=== PATIENT | female | born 1935 | race Caucasian/White ===

== ENCOUNTER 2019-07-11 06:22 | Inpatient (IN) | payer MEDICARE, OTHER ==
[~2019-07-11] VITALS: Ht 147.3 cm; Wt 52.9 kg
[2019-07-11] VITALS (8 sets, daily range): BP systolic 107–195; BP diastolic 69–129
--- NOTE | 2019-07-11 06:25 | NUR ---
UNABLE TO OBTAIN SPO2, PT'S HANDS EXTREMELY COLD, BILINGUAL HR GENERALIST UPDATED AND PT TAKEN BACK TO ROOM
[2019-07-11] MEDS ORDERED: SODIUM CHLORIDE FLUSH 10ML SYR IVF ONE (07:00)
[2019-07-11] MEDS ORDERED: ALBUTEROL/IPRATROPIUM 2.5MG/0.5MG, 3 ML NEB ONE (07:00)
[2019-07-11] MEDS ORDERED: ALBUTEROL SULFATE 2.5 MG/3 ML NPPB ONE (07:00)
[2019-07-11] MEDS ORDERED: methylPREDNISolone SOD SUCC 125 MG/2 ML IV ONE (07:00)
--- NOTE | 2019-07-11 07:02 | NUR ---
PT WHEELED FROM TRIAGE TO ROOM AT THIS TIME. PT OXYGEN 56 ON RA. PT REPORTS HISTORY OF COPD AND CHF, AND PT PLACED ON 15L NON REBREATHER AT THIS TIME. PT 02 IMPROVED TO 100 % ON NON REBREATHER SO PT PLACED ON 3 L OXYMASK TO MAINTAIN OXYGEN SATURATION AT 94%. EKG DONE AT BS. PT ATTACHED TO FIRE ALARM OPERATOR AND VS MACHINES. DR FARRELL AT BS. IV ACCESS ESTABLISHED. AWAITING NEW ORDERS AT THIS TIME.
--- NOTE | 2019-07-11 07:13 | NUR ---
REPORT OF PT TO CROW NELSON. ALL QUESTIONS ANSWERED.
[2019-07-11] MEDS ORDERED: ALBUTEROL/IPRATROPIUM 2.5MG/0.5MG, 3 ML ONE (07:14)
[2019-07-11] MEDS ORDERED: ALBUTEROL SULFATE 2.5MG/0.5ML ONE (07:14)
[2019-07-11 07:16] LABS: BASOPHILS # (AUTO) 0.01 x10^3/uL (0-0.1); BASOPHILS % (AUTO) 0 % (0-1); EOSINOPHILS # (AUTO) 0.01 x10^3/uL (0-0.4); EOSINOPHILS % (AUTO) 0 % (1-7); LYMPHOCYTES # (AUTO) 0.97 x10^3/uL (1-3.4); LYMPHOCYTES % (AUTO) 14 % (22-44); MD NO; MEAN CORPUSCULAR HEMOGLOBIN 27.6 pg (27.0-34.8); MEAN CORPUSCULAR HGB CONC 31.4 g/dL (32.4-35.8); MEAN CORPUSCULAR VOLUME 87.8 fL (80-100); MEAN PLATELET VOLUME 8.1 fL (7.4-10.4); MONOCYTES # (AUTO) 0.62 x10^3/uL (0.2-0.8); MONOCYTES % (AUTO) 9 % (2-9); NEUTROPHILS # (AUTO) 5.31 x10^3/uL (1.8-6.8); NEUTROPHILS % (AUTO) 77 % (42-75); PLATELET COUNT 266 x10^3/uL (130-400); RED BLOOD COUNT 5.66 x10^6/uL (3.82-5.3); RED CELL DISTRIBUTION WIDTH 18.5 % (9.6-15.2)
[2019-07-11] MEDS ORDERED: FURO40TA6 PO (07:16)
[2019-07-11] MEDS ORDERED: LOSA25TA25 PO (07:17)
[2019-07-11] MEDS ORDERED: LEFL20TA16 PO (07:18)
[2019-07-11] MEDS ORDERED: POTA20PA25 PO (07:19)
[2019-07-11] MEDS ORDERED: INHALER (07:19)
[2019-07-11] MEDS ORDERED: LEVA15HF4 INH (07:20)
--- NOTE | 2019-07-11 07:22 | NUR ---
REPORT FROM CROW AVENDANO. ASSUMED CARE OF PATIENT, RT AT BEDSIDE, FAMILY AT BEDSIDE. PATIENT SITTING IN [place], A+OX4, NADN, SKIN WARM, PINK, DRY. XRAY COMPLETED, BREATHING TREATMENT BEING ADMINISTERED AT THIS TIME. CALL LIGHT WITHIN REACH.
[2019-07-11] MEDS ORDERED: methylPREDNISolone SOD SUCC 125 MG/2 ML ONE (07:27)
[2019-07-11 07:29] LABS: ALANINE AMINOTRANSFERASE 64 U/L (12-78); ALBUMIN 3.7 g/dL (3.4-5.0); ANION GAP 10 mmol/L (5-15); CHLORIDE 100 mmol/L (98-107); CREATININE 0.85 mg/dL (0.55-1.02)
[2019-07-11 07:33] LABS: ALKALINE PHOSPHATASE 105 U/L (45-117); BILIRUBIN,TOTAL 0.7 mg/dL (0.2-1.0); TOTAL PROTEIN 7.9 g/dL (6.4-8.2)
[2019-07-11 07:46] LABS: TROPONIN I 0.215 ng/mL (0.000-0.045)
[2019-07-11] MEDS ORDERED: ASPIRIN 81 MG TABLET CHEW PO ONE (08:00)
[2019-07-11] MEDS ORDERED: ASPIRIN 81 MG TABLET CHEW ONE (08:23)
--- NOTE | 2019-07-11 08:29 | NUR ---
PATIENT AMBULATED TO BATHROOM WITH SLOW STEADY GAIT, STAND-BY ASSIST WITH SISTER, PATIENT BACK TO BED, 49% RA, PATIENT NOW 94% 3L OXYMASK, PATIENT SITTING UPRIGHT IN GURNEY, SKIN WARM, PINK DRY, NADN.A+OX4. EKG AT BEDSIDE FOR REPEAT EKG, VS UPDATED IN CHART. BLOOD CULTURES X 2 DRAWN PRIOR TO ABX, ABX ADMINISTERED AT THIS TIME. AQUATIC INSTRUCTOR/SPO2 ON PATIENT. ADMIT ORDER IN, AWAITING BED ASSIGNMENT. PATIENT/FAMILY UPDATED ON POC.
[2019-07-11] MEDS ORDERED: AZITHROMYCIN 500 MG in SODIUM CHLORIDE 0.9% 250 ML IV ONE (08:30)
--- NOTE | 2019-07-11 08:47 | NUR ---
MEDICATION REQUEST SENT TO PHARMACY.
[2019-07-11] MEDS ORDERED: FAMOTIDINE 20 MG TABLET PO SCH (09:00)
[2019-07-11] MEDS ORDERED: DOCUSATE 100 MG CAPSULE PO PRN (09:00)
[2019-07-11] MEDS ORDERED: ACETAMINOPHEN 325 MG TABLET PO PRN (09:00)
[2019-07-11] MEDS ORDERED: LOSARTAN 25MG TABLET PO SCH (09:00)
[2019-07-11] MEDS ORDERED: LABETALOL 5MG/ML, 20ML IVPush PRN (09:00)
[2019-07-11] MEDS ORDERED: GUAIFENESIN/COD200MG-20MG/10ML LIQUID PO PRN (09:00)
--- NOTE | 2019-07-11 09:10 | NUR ---
VS UPDATED IN CHART, PATIENT SITTING IN [facility] SPEAKING WITH [facility] AT BEDSIDE, AWAITING BED ASSIGNMENT. JOVANY.
--- NOTE | 2019-07-11 09:21 | NUR ---
PATIENT TO CT VIA JOVANY POPE.
--- NOTE | 2019-07-11 10:01 | NUR ---
REPORT TO CROW COWART.
[2019-07-11] MEDS: hydrALAzine 20 MG/ML, 1ML IVPush PRN ×2 (10:48→20:18)
[2019-07-11] MEDS: HEPARIN 5,000 UNITS/ML, 1ML SQ SCH ×2 (10:48→18:44)
[2019-07-11] MEDS ORDERED: OMNIPAQUE 350 MG/ML, 100ML BOTTLE ONE (10:53)
[2019-07-11] MEDS: ALBUTEROL/IPRATROPIUM 2.5MG/0.5MG, 3 ML NPPB SCH ×3 (10:58→19:16)
[2019-07-11 11:58] LABS: TROPONIN I 0.319 ng/mL (0.000-0.045)
[2019-07-11] MEDS ORDERED: FUROSEMIDE 20 MG/2 ML IV SCH ×2 (12:00→21:00)
[2019-07-11] MEDS: CEFTRIAXONE PMX 1GM/50ML 50 ML IV SCH (12:18)
[2019-07-11 13:26] LABS: HEMOGLOBIN A1C 6.5 % (4.2-6.3)
[2019-07-11] MEDS: methylPREDNISolone SOD SUCC 40 MG/ML IVPush SCH ×2 (16:23→23:39)
[2019-07-11] MEDS ORDERED: LOSARTAN 25MG TABLET PO STA (17:19)
[2019-07-11 18:36] LABS: TROPONIN I 0.387 ng/mL (0.000-0.045)
[2019-07-11] MEDS ORDERED: DEXTROSE 4 GM TAB.CHEW PO PRN (20:00)
[2019-07-11] MEDS ORDERED: DEXTROSE 50%, 50ML SYRINGE IVPush PRN (20:00)
[2019-07-11] MEDS ORDERED: GLUCAGON 1 MG IM PRN (20:00)
[2019-07-11] MEDS: SODIUM CHLORIDE FLUSH 10ML SYR IVF SCH (21:25)
[2019-07-11] MEDS: INSULIN LISPRO 100 UNITS/ML, PEN SQ-INSULIN SCH (21:25)
[2019-07-12 01:06] VITALS: BP 101/58
[2019-07-12 05:21] LABS: MEAN CORPUSCULAR HEMOGLOBIN 27.5 pg (27.0-34.8); MEAN CORPUSCULAR HGB CONC 31.6 g/dL (32.4-35.8); MEAN CORPUSCULAR VOLUME 86.9 fL (80-100); MEAN PLATELET VOLUME 8.4 fL (7.4-10.4); PLATELET COUNT 199 x10^3/uL (130-400); RED BLOOD COUNT 5.19 x10^6/uL (3.82-5.3); RED CELL DISTRIBUTION WIDTH 18.4 % (9.6-15.2)
[2019-07-12 05:30] LABS: CHLORIDE 104 mmol/L (98-107)
[2019-07-12 05:40] LABS: ANION GAP 6 mmol/L (5-15); CALCIUM 8.5 mg/dL (8.5-10.1); CHOL/HDL RATIO 3.7; CHOLESTEROL, TOTAL 152 mg/dL (140-239); CREATININE 0.57 mg/dL (0.55-1.02); HDL CHOL % 27 % (28-40); HDL CHOLESTEROL (DIRECT) 41 mg/dL (40-60); LDL CHOLESTEROL,CALCULATED 96 mg/dL (54-169); LDL/HDL RATIO 2.3 (0.5-3.0); TRIGLYCERIDES 77 mg/dL (50-200); VLDL CHOLESTEROL 15 mg/dL (0-25)
[2019-07-12] MEDS: HEPARIN 5,000 UNITS/ML, 1ML SQ SCH ×3 (05:51→20:33)
[2019-07-12 05:55] LABS: BASOPHILS % (AUTO) 0 % (0-1); EOSINOPHILS % (AUTO) 0 % (1-7); LYMPHOCYTES # (AUTO) 0.77 x10^3/uL (1-3.4); LYMPHOCYTES % (AUTO) 12 % (22-44); MD SCAN; MONOCYTES # (AUTO) 0.23 x10^3/uL (0.2-0.8); MONOCYTES % (AUTO) 3 % (2-9); NEUTROPHILS # (AUTO) 5.73 x10^3/uL (1.8-6.8); NEUTROPHILS % (AUTO) 85 % (42-75)
[2019-07-12] MEDS: ALBUTEROL/IPRATROPIUM 2.5MG/0.5MG, 3 ML NPPB SCH (06:52)
[2019-07-12] MEDS ORDERED: ALBUTEROL/IPRATROPIUM 2.5MG/0.5MG, 3 ML NPPB PRN (07:00)
[2019-07-12] MEDS: INSULIN LISPRO 100 UNITS/ML, PEN SQ-INSULIN SCH ×4 (07:00→20:40)
[2019-07-12] MEDS ORDERED: MAGNESIUM SULFATE PMX 2GM/50ML 50 ML IV ONE (07:30)
[2019-07-12 08:09] VITALS: BP 151/71
[2019-07-12] MEDS: POTASSIUM CHLORIDE 20 MEQ PACKET PO SCH (08:29)
[2019-07-12] MEDS: FAMOTIDINE 20 MG TABLET PO SCH (08:29)
[2019-07-12] MEDS: methylPREDNISolone SOD SUCC 40 MG/ML IVPush SCH ×2 (08:30→16:14)
[2019-07-12] MEDS: FUROSEMIDE 20 MG/2 ML IV SCH (08:30)
[2019-07-12] MEDS: SODIUM CHLORIDE FLUSH 10ML SYR IVF SCH ×2 (08:53→20:34)
[2019-07-12] MEDS ORDERED: LOSARTAN 50MG TABLET PO SCH ×2 (09:00)
[2019-07-12] MEDS: AZITHROMYCIN 500 MG in SODIUM CHLORIDE 0.9% 250 ML IV SCH (11:42)
[2019-07-12] MEDS: CEFTRIAXONE PMX 1GM/50ML 50 ML IV SCH (12:55)
[2019-07-12 13:04] VITALS: BP 158/93
[2019-07-12 18:34] VITALS: BP 159/89
[2019-07-12] MEDS: LOSARTAN 25MG TABLET PO SCH (20:33)
[2019-07-13] VITALS (7 sets, daily range): BP systolic 128–181; BP diastolic 71–115
[2019-07-13] MEDS: methylPREDNISolone SOD SUCC 40 MG/ML IVPush SCH ×4 (00:32→22:27)
[2019-07-13] MEDS: hydrALAzine 20 MG/ML, 1ML IVPush PRN (03:07)
[2019-07-13] MEDS: HEPARIN 5,000 UNITS/ML, 1ML SQ SCH ×3 (05:21→20:49)
[2019-07-13] MEDS: INSULIN LISPRO 100 UNITS/ML, PEN SQ-INSULIN SCH ×4 (07:52→21:03)
[2019-07-13] MEDS: FAMOTIDINE 20 MG TABLET PO SCH (07:54)
[2019-07-13] MEDS: LOSARTAN 25MG TABLET PO SCH ×2 (07:54→20:49)
[2019-07-13] MEDS: POTASSIUM CHLORIDE 20 MEQ PACKET PO SCH (07:54)
[2019-07-13] MEDS: HYDROCHLOROTHIAZIDE 12.5 MG CAPSULE PO SCH (07:54)
[2019-07-13] MEDS: SODIUM CHLORIDE FLUSH 10ML SYR IVF SCH ×2 (07:55→20:49)
[2019-07-13] MEDS: FUROSEMIDE 20 MG/2 ML IV SCH (07:55)
[2019-07-13] MEDS ORDERED: LEFLUNOMIDE 20 MG TABLET PO SCH (09:00)
[2019-07-13] MEDS ORDERED: LOSARTAN 25MG TABLET PO ONE (09:30)
[2019-07-13 09:45] LABS: ANION GAP 6 mmol/L (5-15); CALCIUM 8.8 mg/dL (8.5-10.1); CHLORIDE 95 mmol/L (98-107); CREATININE 0.58 mg/dL (0.55-1.02)
[2019-07-13 09:58] LABS: HEMOGRAM NOTE RECHECKED; MEAN CORPUSCULAR HEMOGLOBIN 27.4 pg (27.0-34.8); MEAN CORPUSCULAR HGB CONC 31.3 g/dL (32.4-35.8); MEAN CORPUSCULAR VOLUME 87.4 fL (80-100); PLATELET COUNT 231 x10^3/uL (130-400); RED BLOOD COUNT 5.69 x10^6/uL (3.82-5.3); RED CELL DISTRIBUTION WIDTH 18.4 % (9.6-15.2)
[2019-07-13 11:07] LABS: MD MORPH REVIEW ONLY
[2019-07-13 11:08] LABS: BASOPHILS # (AUTO) 0.03 x10^3/uL (0-0.1); BASOPHILS % (AUTO) 0 % (0-1); EOSINOPHILS % (AUTO) 0 % (1-7); LYMPHOCYTES # (AUTO) 0.36 x10^3/uL (1-3.4); LYMPHOCYTES % (AUTO) 5 % (22-44); MONOCYTES # (AUTO) 0.14 x10^3/uL (0.2-0.8); MONOCYTES % (AUTO) 2 % (2-9); NEUTROPHILS % (AUTO) 93 % (42-75)
[2019-07-13 11:10] LABS: <PLATELET ESTIMATE> ADEQUATE; <PLT MORPHOLOGY> NORMAL PLT MORPH; ANISOCYTOSIS 1+; HYPOCHROMIA 1+
[2019-07-13] MEDS: AZITHROMYCIN 500 MG in SODIUM CHLORIDE 0.9% 250 ML IV SCH (11:12)
[2019-07-13] MEDS: CEFTRIAXONE PMX 1GM/50ML 50 ML IV SCH (12:37)
[2019-07-13] MEDS ORDERED: DIPHENHYDRAMINE 50 MG CAPSULE PO PRN (15:30)
[2019-07-13] MEDS ORDERED: GUAIFENESIN 200 MG TABLET PO PRN (15:30)
[2019-07-13] MEDS: BENZONATATE 100 MG CAPSULE PO SCH ×2 (17:13→20:47)
[2019-07-13] MEDS: LOSARTAN 50MG TABLET PO SCH (20:47)
[2019-07-13] MEDS ORDERED: DIPHENHYDRAMINE 25 MG CAPSULE PO PRN (23:00)
[2019-07-14 00:52] VITALS: BP 152/83
[2019-07-14] MEDS: HEPARIN 5,000 UNITS/ML, 1ML SQ SCH (06:17)
[2019-07-14 06:40] VITALS: BP 179/77
[2019-07-14] MEDS: INSULIN LISPRO 100 UNITS/ML, PEN SQ-INSULIN SCH ×2 (07:42→12:07)
[2019-07-14] MEDS: HYDROCHLOROTHIAZIDE 12.5 MG CAPSULE PO SCH (08:03)
[2019-07-14] MEDS: BENZONATATE 100 MG CAPSULE PO SCH (08:03)
[2019-07-14] MEDS: FAMOTIDINE 20 MG TABLET PO SCH (08:03)
[2019-07-14] MEDS: LOSARTAN 50MG TABLET PO SCH (08:03)
[2019-07-14] MEDS: POTASSIUM CHLORIDE 20 MEQ PACKET PO SCH (08:04)
[2019-07-14] MEDS: SODIUM CHLORIDE FLUSH 10ML SYR IVF SCH (08:04)
[2019-07-14] MEDS: methylPREDNISolone SOD SUCC 40 MG/ML IVPush SCH (08:04)
[2019-07-14] MEDS ORDERED: FUROSEMIDE 20 MG TABLET PO SCH (09:00)
[2019-07-14] MEDS ORDERED: LOSA50TA2 PO ×3 (09:25→12:20)
[2019-07-14] MEDS ORDERED: BENZ-17 PO (09:25)
[2019-07-14] MEDS ORDERED: HYDR12.517 PO ×2 (09:25)
[2019-07-14] MEDS ORDERED: METH4TAB2 PO (09:25)
[2019-07-14] MEDS ORDERED: GUAI200T37 PO (09:29)
[2019-07-14] MEDS ORDERED: ALBUTEROL SULFATE 2.5 MG/3 ML NPPB SCH ×2 (09:30→15:00)
[2019-07-14] MEDS ORDERED: FLUTICASONE/VILANTEROL 100-25MCG/INH INH SCH (09:30)
[2019-07-14] MEDS ORDERED: BUDESONIDE 0.5 MG/2 ML INHA INH SCH ×2 (09:30→21:00)
[2019-07-14] MEDS ORDERED: DOXY100T PO (09:33)
[2019-07-14] MEDS ORDERED: FLUT1AER INH (09:34)
[2019-07-14] MEDS ORDERED: SPIRONOLACTONE 25 MG TABLET PO SCH (10:00)
[2019-07-14] MEDS ORDERED: LOSARTAN 50MG TABLET PO SCH (10:00)
[2019-07-14] MEDS ORDERED: LOSARTAN 50MG TABLET PO ONE (10:30)
[2019-07-14 10:57] VITALS: BP 175/92
[2019-07-14] MEDS: AZITHROMYCIN 500 MG in SODIUM CHLORIDE 0.9% 250 ML IV SCH (11:21)
[2019-07-14] MEDS ORDERED: SPIR25TA PO (12:20)
[2019-07-14] MEDS ORDERED: FURO20TA3 PO (12:21)
[2019-07-14] MEDS: CEFTRIAXONE PMX 1GM/50ML 50 ML IV SCH (12:30)
[2019-07-14 12:40] VITALS: BP 160/93
[2019-07-15] MEDS ORDERED: LOSARTAN 50MG TABLET PO SCH (09:00)
== END 2019-07-14 15:24 | disposition home or self-care (01) | DRG 189 ==
LOC: ED 08:54 → EDIP 08:55 → 5SO 10:14 → DCLOUNGE 07-14 15:05
PROVIDERS: ADMIT Internal Medicine; ATTEND Internal Medicine
DX: J96.01 Acute respiratory failure with hypoxia (principal); I21.A1 Myocardial infarction type 2; J44.1 Chronic obstructive pulmonary disease with (acute) exacerbation; E87.2 Acidosis; I27.29 Other secondary pulmonary hypertension; E11.9 Type 2 diabetes mellitus without complications; I11.0 Hypertensive heart disease with heart failure; I16.0 Hypertensive urgency; I27.81 Cor pulmonale (chronic); I50.9 Heart failure, unspecified; Z87.891 Personal history of nicotine dependence
CPT/HCPCS: 36415; 71045; 71275; 80048; 80053; 80061; 82962; 83036; 83605; 83735; 83880; 84100; 84145; 84443; 84484; 85025; 87040; 87070; 87077; 87205; 93005; 93306; 94640; 99291; G0378; J0456; J0696; J1644; J7613; J7620; Q9967; J0360; J1815; J1940; J2920; J2930; J3475; J7050

== ENCOUNTER 2019-07-17 01:27 | Emergency (ER) | payer MEDICARE, OTHER ==
[~2019-07-17] VITALS: Ht 147.3 cm; Wt 48.0 kg
[~2019-07-17 01:27] MED LIST: BENZ-17 PO; DOXY100T PO; FLUT1AER INH; FURO20TA3 PO; FURO40TA6 PO; GUAI200T37 PO; HYDR12.517 PO; INHALER; LEFL20TA16 PO; LEVA15HF4 INH; LOSA25TA25 PO; LOSA50TA2 PO; METH4TAB2 PO; POTA20PA25 PO; SPIR25TA PO
[2019-07-17] MEDS ORDERED: SODIUM CHLORIDE FLUSH 10ML SYR IVF ONE (02:30)
--- NOTE | 2019-07-17 02:33 | NUR ---
PT HERE FOR INCREASED SOB AND HTN. BP ELEVATED. OTHER VSS. PIV PLACED. XRAY AT BEDSIDE. CALL LIGHT IN REACH
[2019-07-17 02:46] LABS: MEAN CORPUSCULAR HEMOGLOBIN 27.6 pg (27.0-34.8); MEAN CORPUSCULAR HGB CONC 31.1 g/dL (32.4-35.8); MEAN CORPUSCULAR VOLUME 88.7 fL (80-100); MEAN PLATELET VOLUME 8.4 fL (7.4-10.4); PLATELET COUNT 186 x10^3/uL (130-400); RED BLOOD COUNT 6.18 x10^6/uL (3.82-5.3); RED CELL DISTRIBUTION WIDTH 17.8 % (9.6-15.2)
[2019-07-17 02:56] LABS: ALANINE AMINOTRANSFERASE 42 U/L (12-78); ALBUMIN 3.5 g/dL (3.4-5.0); CALCIUM 9.1 mg/dL (8.5-10.1); CHLORIDE 93 mmol/L (98-107)
[2019-07-17 03:00] LABS: ALKALINE PHOSPHATASE 77 U/L (45-117); BILIRUBIN,TOTAL 1.1 mg/dL (0.2-1.0); CREATININE 0.55 mg/dL (0.55-1.02); TOTAL PROTEIN 7.2 g/dL (6.4-8.2); TROPONIN I 0.055 ng/mL (0.000-0.045)
[2019-07-17 03:04] LABS: ANION GAP 3 mmol/L (5-15)
--- NOTE | 2019-07-17 03:09 | NUR ---
PT RESTING. BP IMPROVED. PT WAITING FOR BREATHING TREATMENT. FAMILY AT BEDSIDE. CALL LIGHT IN REACH
[2019-07-17 03:16] LABS: BASOPHILS # (AUTO) 0.02 x10^3/uL (0-0.1); BASOPHILS % (AUTO) 0 % (0-1); EOSINOPHILS % (AUTO) 0 % (1-7); LYMPHOCYTES # (AUTO) 0.54 x10^3/uL (1-3.4); LYMPHOCYTES % (AUTO) 7 % (22-44); MD SCAN; MONOCYTES # (AUTO) 0.41 x10^3/uL (0.2-0.8); MONOCYTES % (AUTO) 6 % (2-9); NEUTROPHILS # (AUTO) 6.27 x10^3/uL (1.8-6.8); NEUTROPHILS % (AUTO) 87 % (42-75)
[2019-07-17] MEDS ORDERED: SODIUM CHLORIDE 0.9% 1,000ML IVBOLUS ONE (03:30)
[2019-07-17] MEDS ORDERED: ALBUTEROL/IPRATROPIUM 2.5MG/0.5MG, 3 ML ONE (03:39)
[2019-07-17] MEDS: ALBUTEROL/IPRATROPIUM 2.5MG/0.5MG, 3 ML NPPB SCH (04:40)
--- NOTE | 2019-07-17 05:00 | NUR ---
PT ASSISTED TO BATHROOM. PT TO BE DISCHARGED AFTER IV FLUIDS
--- NOTE | 2019-07-17 06:02 | NUR ---
Patient given discharge instructions and they have confirmed that they understand the instructions. Patient ambulatory with steady gait.
[2019-07-17 06:03] VITALS: BP 163/96
== END 2019-07-17 06:06 | disposition home or self-care (01) ==
LOC: ED 02:01
DX: J44.1 Chronic obstructive pulmonary disease with (acute) exacerbation (principal); E86.0 Dehydration; I11.0 Hypertensive heart disease with heart failure; I50.9 Heart failure, unspecified; R09.02 Hypoxemia; Z87.891 Personal history of nicotine dependence
CPT/HCPCS: 36415; 71045; 80053; 83880; 84484; 85025; 93005; 94640; 99284; J7030; J7620